=== PATIENT | male | born 1955 | race Caucasian/White ===

== ENCOUNTER 2016-10-19 06:51 | Day surgery (SDC) | payer OTHER ==
[2016-10-19] VITALS (9 sets, daily range): BP systolic 128–162; BP diastolic 70–88; PULSE 50–65; RESP 8–16; O2SAT 95–100
[~2016-10-19] VITALS: Ht 167.6 cm; Wt 66.9 kg
[~2016-10-19 06:51] MED LIST: ASCO-294 PO; ASPI-973 PO; Lactated Ringer's 1,000 ML IV ONE; MULT-1018 PO; SIMV20TA4 PO
[2016-10-19] MEDS ORDERED: Propofol 10,000 mCg/mL 20 mL Inj ONE (06:52)
[2016-10-19] MEDS ORDERED: fentaNYL-PF 50 mCg/mL 2 mL Inj ONE (06:52)
[2016-10-19] MEDS ORDERED: HYDROmorphone 1 mg/mL Inj ONE (06:52)
[2016-10-19] MEDS ORDERED: Dexamethasone 4 mg/mL Inj ONE (06:52)
[2016-10-19] MEDS ORDERED: Glycopyrrolate 0.2 MG/ML 1mL Inj ONE (06:52)
[2016-10-19] MEDS ORDERED: Rocuronium 10 mg/mL 5 mL Inj ONE (06:52)
[2016-10-19] MEDS ORDERED: Neostigmine 1 mg/mL 10 mL Inj ONE (06:52)
[2016-10-19] MEDS ORDERED: Ondansetron 2 mg/mL 2 mL Inj ONE (06:52)
[2016-10-19] MEDS ORDERED: CeFAZolin 2 Gm/50 mL D5W IV Premix IV SCH (07:09)
[2016-10-19] MEDS: Vancomycin 1 Gm/200 mL NS Premix IV SCH ×2 (07:45→07:54)
[2016-10-19] MEDS ORDERED: Lactated Ringer's 500 ML IV PRN (08:27)
[2016-10-19] MEDS ORDERED: Lactated Ringer's 1,000 ML IV SCH (08:27)
--- NOTE | 2016-10-19 08:27 | PCM.HPANE ---
Patient Data Surgeon Admitting Provider: Attending Provider:Josef Vargas MD Primary Care Physician:Julio César Traylor MD Other Provider:Patience Aliceaingham Anesthesia Reason for Visit Right Knee Arthritis Ht/WT & BMI Height (Feet): 5 Height (Inches): 6 Weight (Kilograms): 68.49 Body Mass Index 24.00 Allergies Coded Allergies: No Known Allergies (Unverified , 10/12/16) Past Anesthesia History Anesthesia History: Denies:: Abnormal Airway, Anesthesia Reactions, Difficult Intubation, Fam Anesthesia Reaction, Fam Malignant Hypertherm, Malignant Hyperthermia Diabetes History Hx Diabetes?: No MRSA MRSA: No Medications Hypertension Medication: No Home Meds Incl Beta Moshe: No Reported Medications Simvastatin 20 Mg [id number] Mg PO HS Ref 0 10/12/16 Multivitamin (Multi Vitamin Daily)1 Each Tablet1 Each PO DAILY 30 Days Ref 0 10/12/16 Aspirin 81 Mg [id number] Mg PO DAILY Ref 0 10/12/16 Discontinued Reported Medications Ascorbate Calcium (Vitamin C)500 Mg Tablet1,000 Mg PO DAILY 10/12/16 History History of ENT Problems?: No HEENT History: Denies:: Abnormal Airway Cataracts Difficult Intubation Dysphagia Glaucoma Hearing Problem Sinus Problem TMJ Denture Type: None Teeth Condition: Within Normal Limits Hx of Heart Problems?: No Cardiovascular History: Denies:: AICD Abdominal Aortic Aneurism Cardiac Surgery Chest Pain Coronary Artery Disease Edema Heart Murmur Hypertension Irregular Heartbeat Pacemaker Peripheral Vascular Rheumatic Fever Thrombophlebitis Hx of Respiratory Problem?: No Respiratory History: Denies:: Asthma COPD Dyspnea Emphysema Oxygen Administration Pneumonia Tuberculosis Use of C-PAP Machine Use of Inhalers / NEBS Hx Neurologic Problems?: No Neurological History: Denies:: CVA Dementia Headaches Multiple Sclerosis Parkinson's Disease Seizures TIA Hx of GI Problems?: No Hx of Problems?: No Genitourinary History: Denies:: Kidney Stones Urinary Tract Infection Male Hx: Denies:: Prostate Problems (oblong prostate- being followed by urologist) Scrotal Mass Testicular Surgery Skin History: Denies:: History Skin Disorders? Pressure Ulcers Hx Musculoskeletal Problems?: Yes Musculoskeletal History: Positive for:: Degenerative Joint Joint Replacement (left knee ) Musculoskeletal Trauma (right knee current admission problem) Osteoarthritis Denies:: Back Injury Fibromyalgia Myasthenia Gravis Systemic Lupus Hx of Psycho/Social Problems?: No Psycho Social History: Denies:: Anxiety Hx Depression Hx Surgeries?: Yes (left uni knee,vas) Hx Any Other Health Problems?: Yes Other History: Positive for:: Cancer (BCC - upper back, ) Denies:: Thyroid Disease History Blood Transfusions: Positive for:: Accept Blood Products? Denies:: Blood Transfusions Hx Diabetes: No Hx Alcohol Use: YesAlcoholic Drinks Per Day: 12 drinks weekendHx Substance Use : Yes (occasional marijuana - inhale)Have You Smoked inLast 12 mo: No Stop/Bang S-Snoring: Do You Snore Loudly: No T-Tired: feel tired, fatigued: No O-Obsered: Observed not breath: No P-Blood Pressure: treated: No B- Body Mass Index > 35 kg/m2: No A- Age over 50: Yes N- Neck Large Circumference: No G- Gender Male: Yes DERIAN Total Score: 2 DERIAN Risk Assessment: Low Risk, <3 Yes Risk Assessment Category Category 1A: Patient has history of documented sleep apnea, and HAS NOT received any narcotic, sedative or anesthesia administration during this stay. Category 1B: Patient has history of documented sleep apnea, and HAS received any narcotic , sedative or anesthesia administration during this stay Category 2: Patient has SUSPECTED Obstructive Sleep Apnea, and HAS received any narcotic , sedative or anesthesia administration during this stay. Category 3: Patient has SUSPECTED Obstructive Sleep Apnea and HAS NOT received narcotic, sedative or anesthesia administration during this stay. Category 4: Outpatient in Procedural Areas with known sleep apnea or who screen positive for High Risk via the STOP/BANG questionnaire. Exam Exam General Appearance: Alert HEENT/AIRWAY: MP 2, Neck Movement (from, 3 fb) Lungs: Clear to Auscultation Heart: Regular Rate/Rhythm Meds/Labs/Diagnostics Admission Meds Current Medications Lactated Ringer's (Lr) 1,000 ml @ 120 mls/hr Q8H20M ONCE IV Last administered on 10/19/16t 07:13; Start 10/19/16 at 05:00; Stop 10/19/16 at 13:19 Plan Impression Patient chart reviewed, patient interviewed and anesthestic plan with risks, benefits, and alternatives discussed, and informed consent obtained. NPO per Anesth. Guidelines: Yes ASA Physical Status: ASA2 Mod Systemic Disease Anesthetic Plan: GA Bene/Risks/Altern/Consents: Yes HP Complete Prior to Induction: Yes Other Discussed GA. All questions were answered and he agrees to proceed. Brian Ramsey MD Oct 19, 2016 07:20
[2016-10-19] MEDS ORDERED: fentaNYL-PF 50 mCg/mL 2 mL Inj IVPUSH PRN (08:30)
[2016-10-19] MEDS ORDERED: Phenylephrine 10,000 mCg/mL Inj IVPUSH PRN (08:30)
[2016-10-19] MEDS ORDERED: HYDROmorphone 1 mg/mL Inj IVPUSH PRN (08:30)
[2016-10-19] MEDS ORDERED: EPHEDrine Sulfate 50 mg/mL Inj IVPUSH PRN (08:30)
[2016-10-19] MEDS ORDERED: MetoCLOpramide 5 mg/mL 2 mL Inj IVPUSH PRN (08:30)
[2016-10-19] MEDS ORDERED: Ondansetron 2 mg/mL 2 mL Inj IVPUSH PRN (08:30)
[2016-10-19] MEDS ORDERED: Dexamethasone 4 mg/mL Inj IVPUSH PRN (08:30)
[2016-10-19] MEDS ORDERED: Bupivacaine Liposome 1.3% 20 mL Inj ONE (08:35)
[2016-10-19] MEDS ORDERED: Gentamicin 40 mg/mL 2 mL Inj IRRIGATION ONE (09:17)
[2016-10-19] MEDS ORDERED: Bupivacaine-MPF 0.5% W/EPI 30 mL Inj INFILTRATE ONE (09:30)
[2016-10-19] MEDS ORDERED: Bupivacaine Liposome 1.3% 20 mL Inj INFILTRATE ONE (09:30)
[2016-10-19] MEDS ORDERED: oxyCODONE-Acetamin 5-325 mg Tablet PO PRN (09:55)
--- NOTE | 2016-10-19 10:42 | PCM.ANEP1 ---
Post Anesthesia PACU Phase 1 Assessment Vital Signs Vital Signs Date Time Temp Pulse Resp B/P Pulse Ox O2 Delivery O2 Flow Rate FiO2 10/19/16 10:30 36.2 51 10 160/73 97 Room Air 10/19/16 10:25 54 12 144/82 95 Room Air 10/19/16 10:20 53 11 147/70 97 Room Air 10/19/16 10:15 58 13 151/70 99 Room Air 10/19/16 10:11 36.3 65 8 151/78 100 Simple Mask 8 10/19/16 07:39 36 54 16 128/76 97 Room Air Anesthetic Administered: GA Level of Alertness: Awake, talking LLANOS's with Equal Strength: Yes Pain: No Nausea or Vomiting: No CV Function & Hydration Stable: Yes Airway Device: Oxygen Delivery: Simple Mask Lungs: Clear to Auscultation Dermatome Level: Full Sensation PACU Phase 2 Assessment Complications: No Follow up Care: N/A Patient Instructions Provided: N/A Brian Ramsey MD Oct 19, 2016 10:41
--- NOTE | 2016-10-19 10:58 | DRSVH ---
PROCEDURE: X-RAY RIGHT KNEE, ONE OR TWO VIEWS ([id number]) INDICATIONS: POST PROTHESIS ALIGHNMENT TECHNIQUE: 2 views of the knee acquired. COMPARISON: [facility], CR, XR KNEE ARTHRITIC SERIES LT, 10/06/2016, 11:09. FINDINGS: Bones: Patient is status post medial unicompartmental knee joint arthroplasty. Hardware components are in expected positions. Visualized bony structures are intact. There is osteophytosis redemonstr ated in the medial compartment. Soft tissues: Overlying postoperative changes are noted including a surgical drain. IMPRESSION: 1. Expected postsurgical changes status post right medial unicompartmental arthroplasty. Dictated by: Macario Brennan M.D. on 10/19/2016 at 10:55 Approved by: Macario Brennan M.D. on 10/19/2016 at 10:56
--- NOTE | 2016-10-19 20:25 | OP ---
[address] [address] OPERATIVE REPORT PATIENT: MARLEY WILLIS : 1955 MR#: [id number] ADMIT: 10/19/2016 JOB ID: [id number] DATE OF SURGERY: 10/19/2016 PREOPERATIVE DIAGNOSIS(ES): Advanced medial compartment osteoarthritis. POSTOPERATIVE DIAGNOSIS(ES): Advanced medial compartment osteoarthritis. PROCEDURE: Unicompartmental knee arthroplasty, right knee. SURGEON: Josef Vargas MD. POWER DISTRIBUTION ENGINEER: Dick Chen PA-C. Pen Maker required due to the complexity of the operation. INDICATIONS: This gentleman has had persistent and severe osteoarthritic symptoms uncontrolled by conservative treatment techniques. He elects to proceed with a unicompartmental knee arthroplasty. He understands and accepts the potential for risks and complications, which includes but is not limited to, infection, thromboembolic, neurovascular events, as well as potential for implant failure and progressive arthritis in unresurfaced compartments. Understanding this, he wishes to proceed. PROCEDURE IN DETAIL: An anteromedial approach was made to the knee. Dissection was carried down. Frontal bossing was removed. Patellar osteophyte was resected. The tibial alignment guide was placed and a standard tibial cut was made. A 9 mm spacer block was utilized to make a distal femoral cut. The femur was sized to a 5 chamfer cutting block, fixed in appropriate position of rotation and drill holes and chamfer cuts were made. The tibia was sized to an F component, fixed in appropriate position of rotation, and drill holes were made. The 9 mm polyethylene was chosen at trial reduction. All meniscal tissue and osteophytes were removed from the knee. Pressurized lavage followed by pressurized cementation of the components. Excess cement was removed during the curing process. The tourniquet was let down. Hemostasis was achieved. Deep Hemovac drain was left. Deep closure with #2 Quill deep followed by 2-0 Vicryl, 3-0 Vicryl and a 4-0 intracuticular suture. Surgical findings included advanced medial compartment osteoarthritis, minimal lateral and patellofemoral changes noted. An intact ACL was encountered.
== END 2016-10-19 23:59 | disposition home or self-care (01) ==
LOC: SAS 06:51
PROVIDERS: ATTEND Orthopaedic Surgery
DX: M17.11 Unilateral primary osteoarthritis, right knee (principal); E78.5 Hyperlipidemia, unspecified; F12.90 Cannabis use, unspecified, uncomplicated; Z79.82 Long term (current) use of aspirin; Z96.652 Presence of left artificial knee joint; Z85.828 Personal history of other malignant neoplasm of skin
CPT/HCPCS: 27446; 73560; C1713; C1776; J0690; J1100; J1170; J1580; J1885; J2250; J2405; J2710; J3010; J3370; J7120